=== PATIENT | female | born 1935 | race Caucasian/White ===

== ENCOUNTER 2017-09-19 06:12 | Day surgery (SDC) | payer OTHER ==
[~2017-09-19] VITALS: Ht 154.9 cm; Wt 66.7 kg
[2017-09-19 06:51] VITALS: BP 140/80
== END 2017-09-19 13:40 | disposition home or self-care (01) ==
LOC: DS 06:12 → OR 08:30 → DS 13:40
DX: H25.11 Age-related nuclear cataract, right eye (principal); Z53.09 Procedure and treatment not carried out because of other contraindication
CPT/HCPCS: J2250

== ENCOUNTER 2020-09-02 22:19 | Emergency (ER) | payer OTHER ==
[~2020-09-02] VITALS: Ht 157.5 cm; Wt 63.2 kg
[2020-09-02 22:24] VITALS: Ht 157.5 cm; Wt 63.2 kg
[2020-09-02 23:06] LABS: BASOPHIL % 1.4 % (0-2); PLATELET COUNT 246 x10^3mcL (130-400)
[2020-09-02 23:22] LABS: CALCIUM 9.5 mg/dL (8.5-10.1); CHLORIDE SERUM 100 mmol/L (98-107); CREATININE SERUM 0.9 mg/dL (0.6-1.0); GLUCOSE SERUM 97 mg/dL (74-106); POTASSIUM SERUM 4.1 mmol/L (3.5-5.1); SODIUM SERUM 132 mmol/L (136-145)
[2020-09-02 23:27] LABS: ALBUMIN 3.5 g/dL (3.4-5.0); ALKALINE PHOSPHATASE 65 U/L (46-116); ALT/SGPT 19 U/L (14-59); AST/SGOT 16 U/L (15-37); BILIRUBIN TOTAL 0.5 mg/dL (0.20-1.00); LIPASE 186 IU/L (73-393); TOTAL PROTEIN, SERUM 7.7 g/dL (6.4-8.2)
[2020-09-03 00:09] VITALS: BP 136/58
== END 2020-09-02 23:45 | disposition home or self-care (01) ==
LOC: ED 22:19
PROVIDERS: Emergency Medicine
DX: K59.00 Constipation, unspecified (principal); I10 Essential (primary) hypertension; Z90.89 Acquired absence of other organs; Z88.2 Allergy status to sulfonamides; Z88.5 Allergy status to narcotic agent; Z98.890 Other specified postprocedural states
CPT/HCPCS: J2270